=== PATIENT | female | born 1965 | race Caucasian/White ===

== ENCOUNTER 2020-02-15 08:48 | Emergency (ER) | payer OTHER ==
[~2020-02-15] VITALS: Ht 157.5 cm; Wt 69.4 kg
[2020-02-15 08:53] VITALS: BP 140/95
--- NOTE | 2020-02-15 09:04 | NUR ---
54 Y/O FEMALE FROM HOME C/O LT HIP PAIN S/P DOG RAN INTO LT LEG THIS MORNING. PT STATES DOG GOT EXCITED AND RAN INTO LEG AND SHE HEARD A "POP". STATES 10/10 PAIN AT THIS TIME. ABLE TO AMBULATE WITH LIMP, WORSE PAIN UPON AMBULATION. STATES WHEN SHE SITS DOWN SHE "FEELS LIKE THERE IS A BONE STICKING IN MY BUTTOCKS." NO BRUISING NOTED. RR EVEN AND UNLABORED. POSITIONED IN BED FOR COMFORT. +CMS. MEDHX: ASTHMA ALLERGIES: DOXYCYCLINE
--- NOTE | 2020-02-15 09:07 | NUR ---
PT WHEELCHAIR ASSISTED TO RESTROOM, URINE COLLECTED AT THIS TIME
--- NOTE | 2020-02-15 09:13 | NUR ---
PT TO X-RAY VIA [facility]
--- NOTE | 2020-02-15 09:22 | NUR ---
PT RETURNED FROM X-RAY VIA [facility]
--- NOTE | 2020-02-15 09:25 | NUR ---
DR TRINIDAD AT BEDSIDE EVALUATING PT
--- NOTE | 2020-02-15 09:39 | NUR ---
DR TRINIDAD AT BEDSIDE RE-EVALUATING PT
[2020-02-15] MEDS ORDERED: KETOROLAC 30 MG/ML VIAL IM ONE (09:45)
--- NOTE | 2020-02-15 10:10 | NUR ---
PT STATES DECREASE IN PAIN S/P TORADOL IM. 11/16 AT THIS TIME
--- NOTE | 2020-02-15 10:18 | NUR ---
PT VERBALIZES AND RETURN DEMONSTRATES USE OF CRUTCHES
--- NOTE | 2020-02-15 10:23 | NUR ---
Patient discharged with v/s stable. Written and verbal after care instructions given and explained. Patient verbalized understanding. Ambulatory with steady gait WITH USE OF CRUTCHES. All questions addressed prior to discharge. Advised to follow up with PMD.
[2020-02-15 10:24] VITALS: BP 136/88
== END 2020-02-15 10:23 | disposition home or self-care (01) ==
LOC: MED 08:48
DX: M25.551 Pain in right hip (principal); M79.605 Pain in left leg; J45.909 Unspecified asthma, uncomplicated; Z88.1 Allergy status to other antibiotic agents; X50.0XXA Overexertion from strenuous movement or load, initial encounter; Y93.89 Activity, other specified; Y92.89 Other specified places as the place of occurrence of the external cause; Y99.8 Other external cause status
CPT/HCPCS: 73521; 81025; 96372; 99283; J1885